=== PATIENT | male | born 1955 | race Caucasian/White ===

== ENCOUNTER 2017-12-07 08:55 | Emergency (ER) | payer BC ==
[2017-12-07 09:13] VITALS: BP 130/83
--- NOTE | 2017-12-07 10:04 | UC ---
Throat Pain/Nasal Fredrick HPI - HPI Summary HPI Summary: [address] got much worse since last night, was unbale to sleep d/t pain - History of Current Complaint Chief Complaint: UCGeneralIllness Stated Complaint: SORE THROAT Time Seen by Provider: 12/07/17 09:30 Hx Obtained From: Patient Onset/Duration: Gradual Onset Severity: Severe Pain Intensity: 6 Associated Signs & Symptoms: Positive: Fever - Allergies/Home Medications Allergies/Adverse Reactions: Allergies Allergy/AdvReac Type Severity Reaction Status Date / Time No Known Allergies Allergy Verified 12/07/17 09:14 PMH/Surg Hx/FS Hx/Imm Hx Previously Healthy: Yes Neurological History: Migraine - Surgical History Surgical History: Yes Surgery Procedure, Year, and Place: Bilateral Inguinal Hernia Repairs as ; Umbilical Hernia Repair x2 at [facility] [place]; hemorrhoids - Family History Known Family History: Positive: Hypertension - Social History Occupation: Employed Full-time Lives: With Family Alcohol Use: Rare Substance Use Type: None Smoking Status (MU): Never Smoked Tobacco - Immunization History Most Recent Influenza Vaccination: never Most Recent Tetanus Shot: "up to date" Most Recent Pneumonia Vaccination: has not had Review of Systems Constitutional: Fever, Chills Skin: Negative Eyes: Negative ENT: Sore Throat Respiratory: Negative Cardiovascular: Negative Neurological: Negative Psychological: Negative All Other Systems Reviewed And Are Negative: Yes Physical Exam Triage Information Reviewed: Yes Appearance: Well-Appearing, No Pain Distress, Obese Vital Signs: Initial Vital Signs Temp 97 F 12/07/17 09:11 Pulse 58 12/07/17 09:11 Resp 16 12/07/17 09:11 BP 130/83 12/07/17 09:11 Pulse Ox 99 12/07/17 09:11 Vital Signs Reviewed: Yes ENT: Positive: Pharyngeal erythema, Tonsillar exudate Neck exam: Normal Neck: Positive: No Lymphadenopathy Respiratory Exam: Normal Cardiovascular Exam: Normal Musculoskeletal Exam: Normal Neurological Exam: Normal Psychological Exam: Normal Skin Exam: Normal Skin: Negative: rashes Throat Pain/Nasal Course/Dx - Differential Dx/Diagnosis Differential Diagnosis/HQI/PQRI: Pharyngitis, Sinusitis, Tonsillitis, URI Provider Diagnoses: tonsilitis Discharge - Sign-Out/Discharge Documenting (check all that apply): Discharge/Admit/Transfer - Discharge Plan Condition: Good Disposition: HOME Prescriptions: Amoxicillin 875 mg PO BID #20 tablet Patient Education Materials: Tonsillitis (ED) Referrals: Saulo Jha MD [Primary Care Provider] - 3 Days (if no better) Additional Instructions: drink plenty of fluids start antibiotic as directed use ibuprofen 600-800mg edwar 6 hours as needed for pain reprt to Er if you develop difficulty swallowing or high fever - Billing Disposition and Condition Condition: GOOD Disposition: Home
== END 2017-12-07 10:14 | disposition home or self-care (01) ==
LOC: UCEAST 08:55
DX: J03.90 Acute tonsillitis, unspecified (principal); G43.909 Migraine, unspecified, not intractable, without status migrainosus; Z82.49 Family history of ischemic heart disease and other diseases of the circulatory system
CPT/HCPCS: 87651; 99212; G0463

== ENCOUNTER 2019-02-22 08:06 | Emergency (ER) | payer OTHER ==
[2019-02-22 08:27] VITALS: BP 150/90
--- NOTE | 2019-02-22 08:44 | UC ---
Skin Complaint HPI - HPI Summary HPI Summary: R upper thigh 'boil' and pt. reports pain for a few days. denies fever, n/v. used warm compresses w/ no help. - History of Current Complaint Chief Complaint: UCSkin Time Seen by Provider: 02/22/19 08:18 Stated Complaint: BOIL ON THIGH Hx Obtained From: Patient Pain Intensity: 8 Pain Scale Used: 0-10 Numeric Aggravating Factor(s): Touch Alleviating Factor(s): Heat Associated Signs & Symptoms: Negative: Nausea, Vomiting, Fever, Chills - Allergy/Home Medications Allergies/Adverse Reactions: Allergies Allergy/AdvReac Type Severity Reaction Status Date / Time No Known Allergies Allergy Verified 02/22/19 08:27 PMH/Surg Hx/FS Hx/Imm Hx Previously Healthy: Yes Other Endocrine History: obesity - Surgical History Surgical History: Yes Surgery Procedure, Year, and Place: Bilateral Inguinal Hernia Repairs as ; Umbilical Hernia Rep[place]2 [place] [facility] [place]oids - Family History Known Family History: Positive: Hypertension - Social History Alcohol Use: Rare Substance Use Type: None Smoking Status (MU): Never Smoked Tobacco - Immunization History Most Recent Influenza Vaccination: never Most Recent Tetanus Shot: "up to date" Most Recent Pneumonia Vaccination: has not had Review of Systems All Other Systems Reviewed And Are Negative: Yes Constitutional: Negative: Fever, Chills Skin: Positive: Other - boil Respiratory: Negative: Shortness Of Breath Cardiovascular: Negative: Palpitations, Chest Pain Neurological: Negative: Weakness Physical Exam Triage Information Reviewed: Yes Appearance: Well-Appearing Vital Signs: Initial Vital Signs Temp 98.2 F 02/22/19 08:21 Pulse 78 02/22/19 08:21 Resp 12 02/22/19 08:21 BP 150/90 02/22/19 08:21 Pulse Ox 100 02/22/19 08:21 Vital Signs Reviewed: Yes Respiratory Exam: Normal Cardiovascular Exam: Normal Neurological: Positive: Alert Skin: Positive: Other - abscess on R upper thigh. Course/Dx - Course Course Of Treatment: R upper thigh abscess. I&D performed after we used clean technique to clean and drape the area. After discharge was collected and expelled area was shallow so no iodoform. Then we dressed. TIME OUT was performed and he tolerated procedure well. BP ELEVATED but afebrile. - Differential Diagnoses - Skin Complaint Differential Diagnoses: Abscess, Impetigo, Other - Diagnoses Provider Diagnosis: Abscess Discharge ED - Sign-Out/Discharge Documenting (check all that apply): Patient Departure All imaging exams completed and their final reports reviewed: No Studies - Discharge Plan Condition: Good Disposition: HOME Prescriptions: Cephalexin CAP* [Keflex CAP*] 500 mg PO TID 7 Days #21 cap Patient Education Materials: Abscess (ED) Referrals: Saulo Jha MD [Primary Care Provider] - Additional Instructions: If the abscess develops again please return. - Billing Disposition and Condition Condition: GOOD Disposition: Home - Attestation Statements Provider Attestation: I was available for consult. This patient was seen by the [facility]. The patient was not presented to , seen by or examined by in -Leandro Martinez MD
--- NOTE | 2019-02-23 12:09 | UC ---
- Progress Note Progress Note: LEFT THIGH ABSCESS DRAINED YESTERDAY. I SPOKE TO ILA AND PLAN TO START ANTIBIOTICS TODAY . SHE WILL CALL AND INFORM PATIENT . I WILL PRESCRIBE KEFLEX TO THE PHARMACY. Course/Dx - Diagnoses Provider Diagnoses: Abscess Discharge ED - Sign-Out/Discharge Documenting (check all that apply): Post-Discharge Follow Up All imaging exams completed and their final reports reviewed: No Studies - Discharge Plan Condition: Good Disposition: HOME Patient Education Materials: Abscess (ED) Referrals: Saulo Jha MD [Primary Care Provider] - Additional Instructions: If the abscess develops again please return. - Billing Disposition and Condition Condition: GOOD Disposition: Home
== END 2019-02-22 09:15 | disposition home or self-care (01) ==
LOC: UCEAST 08:06
DX: L02.415 Cutaneous abscess of right lower limb (principal); E66.9 Obesity, unspecified
CPT/HCPCS: 87070; 87076; 87205; 87640; 87641; 99211; G0463

== ENCOUNTER 2019-08-25 09:24 | Emergency (ER) | payer OTHER ==
--- NOTE | 2019-08-25 09:41 | UC ---
General HPI - HPI Summary HPI Summary: Angle 64 yo gentleman c/o two episodes chest pain since Saturday. Today is Saturday. Both episodes apprx 1 min. No sob / cp / palpitations. No fever / chills. No gi/gu sx No rash. No recent illness. First episode occurred while playing with grandkids, pain was in upper ant chest and left lat chest Episode last evening approx 11pm left lat chest. Last night decided to come in here to be checked today. - History of Current Complaint Stated Complaint: CHEST PAIN Time Seen by Provider: 08/25/19 09:40 Hx Obtained From: Patient - Allergy/Home Medications Allergies/Adverse Reactions: Allergies Allergy/AdvReac Type Severity Reaction Status Date / Time No Known Allergies Allergy Verified 08/25/19 09:49 Home Medications: Home Medications Rizatriptan Benzoate [Rizatriptan] 5 mg PO SEE INSTRUCTIONS PRN 09/15/18 [ History Confirmed 08/25/19] PMH/Surg Hx/FS Hx/Imm Hx Previously Healthy: Yes - Surgical History Surgical History: Yes Surgery Procedure, Year, and Place: Bilateral Inguinal Hernia Repairs as ; Umbilical Hernia Repair x2 at [facility] [place]; hemorrhoids - Family History Known Family History: Positive: Hypertension - Social History Alcohol Use: Rare Substance Use Type: None Smoking Status (MU): Never Smoked Tobacco - Immunization History Most Recent Influenza Vaccination: never Most Recent Tetanus Shot: "up to date" Most Recent Pneumonia Vaccination: has not had Review of Systems All Other Systems Reviewed And Are Negative: Yes Constitutional: Positive: Negative Skin: Positive: Negative Eyes: Positive: Negative ENT: Positive: Negative Respiratory: Positive: Negative Cardiovascular: Positive: Chest Pain Gastrointestinal: Positive: Negative Genitourinary: Positive: Negative Motor: Positive: Negative Neurovascular: Positive: Negative Musculoskeletal: Positive: Negative Neurological/Mental Status: Positive: Negative Psychological: Positive: Negative Is Patient Immunocompromised?: No Physical Exam Triage Information Reviewed: Yes Appearance: Well-Appearing, Well-Nourished Vital Signs Reviewed: Yes Eye Exam: Normal ENT Exam: Normal Neck exam: Normal Respiratory Exam: Normal Respiratory: Positive: Chest non-tender, Lungs clear, Normal breath sounds, No respiratory distress, No accessory muscle use Cardiovascular Exam: Normal Cardiovascular: Positive: RRR, Pulses Normal, Brisk Capillary Refill Abdominal Exam: Normal Abdomen Description: Positive: Nontender Musculoskeletal Exam: Normal Neurological Exam: Normal Psychological Exam: Normal Skin Exam: Normal - nondiaphoretic no visible or reported rash Course/Dx - Course Course Of Treatment: bp 160/86 SR 85 bpm. probable LAE Abnol R wave progression, early transition LA 196 Qtc 440 No old ekg for comp No current discomfort. However, source of cp unclear. C/n exclude cardiac (or pulm / vasc etc) D/w pt. Will go to the ED. He wishes to drive. Questions as posed answered to the best of my ability. - Diagnoses Provider Diagnosis: Chest pain Discharge ED - Sign-Out/Discharge Documenting (check all that apply): Patient Departure All imaging exams completed and their final reports reviewed: No Studies - Discharge Plan Condition: Stable Disposition: HOME-RECOMMEND TO ED Patient Education Materials: Chest Pain (ED) Referrals: Saulo Jha MD [Primary Care Provider] - Additional Instructions: Please go to the Emergency Department Stop and call [address] - Billing Disposition and Condition Condition: STABLE Disposition: Home-Recommend to ED
[2019-08-25 09:49] VITALS: BP 160/86
[2019-08-25] MEDS ORDERED: Aspirin 81 mg CHEW TAB* 81 MG TAB.CHEW PO ONE (10:31)
== END 2019-08-25 10:39 | disposition home health service (06) ==
LOC: UCEAST 09:24
DX: R07.9 Chest pain, unspecified (principal)
CPT/HCPCS: 93005; 99212; A9270-GY; G0463

== ENCOUNTER 2019-08-25 14:24 | Emergency (ER) | payer OTHER ==
--- NOTE | 2019-08-25 16:29 | ED ---
HPI Chest Pain - HPI Summary HPI Summary: This patient is a 64 y/o male presenting to [facility] referred by SHERLY c/o chest pain 3 days ago on 08/22/19. Patient reports he experienced chest pain while he was playing with his grandchildren and he was lifting them up on 08/22/19. He describes chest pain on his bilateral upper chest that resolved spontaneously after resting for 15 minutes. Last night around 2300 patient describes he had pain under his left shoulder blade, which resolved after repositioning. He denies any chest pain today. Denies any shortness of breath, cough, fever or chills. Patient went to Urgent Care where he had an EKG and was recommended to the emergency room for further work up. Patient was given 324 mg aspirin at Urgent [facility]. PMHx includes migraine (for which he takes medications), dyslipidemia (for which he was on medications but was discontinued after his levels normalized). He denies any other hx of heart disease. FHx: father with OR at age 89. Patient denies tobacco and drug use, however reports occasional alcohol use. Home Medications Medication Instructions Recorded Confirmed Type Rizatriptan Benzoate [Maxalt Apartment Maintenance Manager] 10 mg PO DAILY PRN 08/25/19 08/25/19 History - History of Current Complaint Chief Complaint: EDChestPainROMI Time Seen by Provider: 08/25/19 16:17 Hx Obtained From: Patient Onset/Duration: Started Days Ago - 3, Resolved Timing: Lasting Minutes - 15 min Initial Severity: Moderate Current Severity: None Pain Intensity: 0 Pain Scale Used: 0-10 Numeric Chest Pain Location: Diffuse Chest Pain Radiates: No Aggravating Factor(s): Nothing Alleviating Factor(s): Spontaneous Resolution Associated Signs and Symptoms: Positive: Chest Pain. Negative: Shortness of Breath, Fever, Chills, Cough - Allergy/Home Medications Allergies/Adverse Reactions: Allergies Allergy/AdvReac Type Severity Reaction Status Date / Time No Known Allergies Allergy Verified 08/25/19 09:49 Home Medications: Home Medications Atorvastatin* [Lipitor*] 40 mg PO DAILY #14 tab 08/25/19 [Rx] Rizatriptan Benzoate [Maxalt Apartment Maintenance Manager] 10 mg PO DAILY PRN 08/25/19 [History Confirmed 08/25/19] PMH/Surg Hx/FS Hx/Imm Hx Endocrine/Hematology History: Denies: Hx Diabetes, Hx Thyroid Disease Cardiovascular History: Reports: Hx Hypercholesterolemia Denies: Hx Hypertension Respiratory History: Reports: Hx Sleep Apnea - current CPAP user, compliant Denies: Hx Asthma, Hx Chronic Obstructive Pulmonary Disease (COPD) GI History: Denies: Hx Ulcer Sensory History: Reports: Hx Contacts or Glasses Opthamlomology History: Reports: Hx Contacts or Glasses - Surgical History Surgical History: Yes Surgery Procedure, Year, and Place: Bilateral Inguinal Hernia Repairs as ; Umbilical Hernia Repair x2 at [facility] [place]; hemorrhoids Infectious Disease History: No Infectious Disease History: Denies: Hx Hepatitis, Hx Human Immunodeficiency Virus (HIV), History Other Infectious Disease, Traveled Outside the [place] in Last 30 Days - Family History Known Family History: Positive: Cardiac Disease - Father with OR, Hypertension, Diabetes - two older brothers - Social History Alcohol Use: Rare Substance Use Type: Reports: None Smoking Status (MU): Never Smoked Tobacco Review of Systems Negative: Fever, Chills Negative: Chest Pain - 3 days ago had chest pain Negative: Shortness Of Breath, Cough All Other Systems Reviewed And Are Negative: Yes Physical Exam - Summary Physical Exam Summary: VITAL SIGNS: Reviewed. GENERAL: Patient is a well-developed and nourished male who is lying comfortable in the stretcher. Patient is not in any acute respiratory distress. HEAD AND FACE: No signs of trauma. No ecchymosis, hematomas or skull depressions. No sinus tenderness. EYES: PERRLA, EOMI x 2, No injected conjunctiva, no nystagmus. EARS: Hearing grossly intact. Ear canals and tympanic membranes are within normal limits. MOUTH: Oropharynx within normal limits. NECK: Supple, trachea is midline, no adenopathy, no JVD, no carotid bruit, no c- spine tenderness, neck with full ROM. CHEST: Symmetric, no tenderness at palpation LUNGS: Clear to auscultation bilaterally. No wheezing or crackles. CVS: Regular rate and rhythm, S1 and S2 present, no murmurs or gallops appreciated. ABDOMEN: Soft, non-tender. No signs of distention. No rebound, no guarding, and no masses palpated. Bowel sounds are normal. EXTREMITIES: FROM in all major joints, no edema, no cyanosis or clubbing. NEURO: Alert and oriented x 3. No acute neurological deficits. Speech is normal and follows commands. SKIN: Dry and warm Triage Information Reviewed: Yes Vital Signs On Initial Exam: Initial Vitals Temp Pulse Resp BP Pulse Ox 97.7 F 78 14 161/95 96 08/25/19 14:30 08/25/19 14:30 08/25/19 14:30 08/25/19 14:30 08/25/19 14:30 Vital Signs Reviewed: Yes Procedures - Sedation Patient Received Moderate/Deep Sedation with Procedure: No Diagnostics - Vital Signs Vital Signs Temp Pulse Resp BP Pulse Ox 08/25/19 14:30 97.7 F 78 14 161/95 96 - Laboratory Result Diagrams: 08/25/19 16:14 08/25/19 17:16 Lab Statement: Any lab studies that have been ordered have been reviewed, and results considered in the medical decision making process. - Radiology Chest XR Radiology Interpretation Completed By: Radiologist Summary of Radiographic Findings: IMPRESSION: Linear atelectasis of the left lung base. Dr. Hall has reviewed this report. - EKG 16:15 Cardiac Rate: NL - at 70 bpm EKG Rhythm: Sinus Rhythm Summary of EKG Findings: EKG at 16:15 shows sinus rhythm at a rate of [address] elevations. Normal axis. This EKG was interpreted and reviewed by ED physician. Re-Evaluation - Re-Evaluation First Eval Re-Evaluation Time: 20:05 Comment: Patient would like to leave against medical advice. The risks and benefits of leaving AMA were discusssed. Patient signed the AMA form. Chest Pain Course/Dx - Course Assessment/Plan: This patient is a 64 y/o male presenting to [facility] referred by [facility] c/o chest pain 3 days ago on 08/22/19. Patient reports he experienced chest pain while he was playing with his grandchildren and he was lifting them up on 08/22/19. He describes chest pain on his bilateral upper chest that resolved spontaneously after resting for 15 minutes. Last night around 2300 patient describes he had pain under his left shoulder blade, which resolved after repositioning. He denies any chest pain today. Denies any shortness of breath, cough, fever or chills. Patient went to Urgent Care where he had an EKG and was recommended to the emergency room for further work up. Patient was given 324 mg aspirin at Urgent Care [facility]. PMHx includes migraine (for which he takes medications), dyslipidemia (for which he was on medications but was discontinued after his levels normalized). He denies any other hx of heart disease. FHx: father with OR at age 89. Patient denies tobacco and drug use, however reports occasional alcohol use. In the ED course the patient was placed in a property assessment monitor, IV access was obtained, IV fluids were started. ASA was given in . Past medical records were reviewed. Patient reports no chest pain today. Blood test w/o a significant abnormality except for sodium of 132, chloride 98, glucose 311. The patients triglycerides and LDL cholesterol are still not reportable because they are trying to dilute them since they are too lipemic. Two troponins 4 hours apart are both 0.00. At this point the patient wants to go home and he does want to wait for the rest of the results. I extensively discussed with the patient the benefits and risks of leaving AMA. I also discussed the alternatives to leaving AMA, however , the patient still insists to leave the hospital AMA. The patient is clinically sober, free from distracting injury, appears to have intact insight and judgment and reason and in my opinion has the capacity to make decisions. Patient has full capacity and is cognitively intact. The patient presents with one episode of chest pain on Saturday. No chest pain today. I have explained that I am concerned with those symptoms and that they may represent ACS or . The patient verbalizes understanding of my concerns. I have also explained the results of the labs and that they are abnormal. The primary nurse and the charge nurse also strongly recommended that the patient should not leave AMA. Patient understands the risks of leaving AMA, which includes but is not restricted to . Patient signed the AMA form. Patient was also advised to return to ED if he changes his mind or if the symptoms worsen or other symptoms appear. Patient understands and agrees. Again, I discussed all the findings and test results with the patient. Patient was instructed to return to the emergency room immediately if any of the symptoms return or worsen. Plan of care was discussed with the patient and he understands and agrees. All questions were answered at patient satisfaction. There were no further complaints or concerns. Patient signed AMA and he was discharged AMA. Patient was given a prescription for Lipitor. He was recommended to take ASA daily. - Chest Pain Differential Diagnosis/HQI/PQRI: Acute OR, ACS, Angina, CHF, Chest Wall, GI Disease, Lower Respiratory Infection, Pulmonary Edema - Diagnoses Provider Diagnoses: Chest pain, Dyslipidemia Discharge ED - Sign-Out/Discharge Documenting (check all that apply): Patient Departure - AMA - Discharge Plan Condition: Stable Disposition: AGAINST MEDICAL ADVICE Prescriptions: Atorvastatin* [Lipitor*] 40 mg PO DAILY #14 tab Patient Education Materials: Chest Pain (ED), Hyperlipidemia (DC) Referrals: Saulo Jha MD [Primary Care Provider] - Additional Instructions: FOLLOW UP WITH YOUR PRIMARY CARE PROVIDER IN 2-3 DAYS. RETURN TO THE ED FOR ANY NEW OR WORSENING SYMPTOMS. - Billing Disposition and Condition Condition: STABLE Disposition: Against Medical Advice - Attestation Statements Document Initiated by Scribe: Yes Documenting Scribe: Lulu Herrera Provider For Whom Aleksandr is Documenting (Include Credential): Saulo Hall MD Scribe Attestation: Lulu Rizzo, scribed for Saulo Hall MD on 08/29/19 at 1749. Scribe Documentation Reviewed: Yes Provider Attestation: The documentation as recorded by the Lulu montilla accurately reflects the service I personally performed and the decisions made by Saulo zacarias MD Status of Scribe Document: Viewed
[2019-08-25 16:30] LABS: ABS Basophils 0.1 10^3/ul (0-0.2); ABS Eosinophils 0.1 10^3/ul (0-0.6); ABS Monocytes 0.2 10^3/ul (0-0.8); ABS Neutrophils 3.4 10^3/ul (1.5-7.7); Eosinophil % 1.6 %; Hematocrit 45 % (42-52); Hemoglobin 15.9 g/dL (14.0-18.0); Lymphocyte % 21.1 %; Mean Corpuscular HGB Conc 35 g/dL (31-36); Mean Corpuscular Hemoglobin 29 pg (27-31); Mean Corpuscular Volume 84 fL (80-94); Mean Platelet Volume 9.3 fL (7.4-10.4); Nucleated Red Blood Cells % 0.1; Platelet Count 132 10^3/uL (150-450); Red Blood Count 5.41 10^6 /uL (4.18-5.48); Red Cell Distribution Width 14 % (10-15); White Blood Count 4.8 10^3/uL (3.5-10.8)
[2019-08-25 16:49] LABS: ALT 16 U/L (7-52); Albumin 4.3 g/dL (3.2-5.2); Albumin/Globulin Ratio 1.6 (1-3); Alkaline Phosphatase 46 U/L (34-104); BUN/Creatinine Ratio 16.2 (8-20); Blood Urea Nitrogen 17 mg/dL (6-24); CO2 Carbon Dioxide 26 mmol/L (22-32); Calcium 9.4 mg/dL (8.6-10.3); Chloride 98 mmol/L (101-111); Creatine Kinase 89 U/L (10-223); EGFR African American 86.6 (>60); EGFR Non-African American 71.6 (>60); Globulin 2.7 g/dL (2-4); Glucose 311 mg/dL (70-100); Sodium 132 mmol/L (135-145)
[2019-08-25 16:51] LABS: Anion Gap 8 mmol/L (2-11); CKMB ng/mL 3.2 ng/mL (0.6-6.3)
[2019-08-25 17:20] LABS: TSH (Thyroid Stimulating Horm) 2.01 mcIU/mL (0.34-5.60)
[2019-08-25 18:27] LABS: Cholesterol 257 mg/dL; HDL Cholesterol 21.6 mg/dL
[2019-08-25 18:36] LABS: Urine Appearance Clear; Urine Bilirubin Negative (Negative); Urine Blood Negative (Negative); Urine Color Yellow; Urine Glucose 3+(>=500 mg/dL) (Negative); Urine Ketones 1+ (Negative); Urine Nitrite Negative (Negative); Urine Protein Negative (Negative); Urine Specific Gravity 1.031 (1.010-1.030); Urine Urobilinogen Negative (Negative)
[2019-08-25 20:20] LABS: Triglycerides 1700 mg/dL
[2019-08-25 20:25] VITALS: BP 145/99
[2019-08-25 20:34] LABS: LDL Cholesterol Direct 44 mg/dL
== END 2019-08-25 20:25 | disposition left against medical advice (07) ==
LOC: ED 14:24
DX: R07.9 Chest pain, unspecified (principal); E78.5 Hyperlipidemia, unspecified; G47.30 Sleep apnea, unspecified; E78.00 Pure hypercholesterolemia, unspecified; Z79.899 Other long term (current) drug therapy; Z82.49 Family history of ischemic heart disease and other diseases of the circulatory system
CPT/HCPCS: 36415; 71045; 80053; 80061; 81003; 82550; 82553; 83721; 83880; 84443; 84484; 85025; 85730; 93005; 99283